=== PATIENT | male | born 1990 | race Caucasian/White ===

== ENCOUNTER 2020-02-10 15:23 | Emergency (ER) | payer SELFPAY ==
[2020-02-10 15:27] VITALS: BP 154/95; PULSE 106; RESP 17; TEMP 37.1; O2SAT 98; BMI 31.4
--- NOTE | 2020-02-10 15:33 | ED_ITS ---
Entered by Andrew Boyd LPN, acting as scribe for Angel Holt DO HPI - General Adult General: Chief complaint: General Medical Stated complaint: sore throat Time Seen by Provider: 02/10/20 15:35 Source: patient Mode of arrival: ambulatory Limitations: no limitations History of Present Illness: HPI narrative: 29 yo male presents with c/o sore throat for 4 days. He has had fever, up to 101.7, last ran a fever last night. He has had cough, productive of white/ yellowish phlegm. He denies rash, sob, cp. Associated symptoms: Deny chest pain, dyspnea, malaise, nausea, rash or vomiting Review of Systems Const: Reports: fever (last ran a fever last night); Denies: chills, body aches, change in appetite, fatigue or malaise ENMT: Reports: throat pain, painful swallowing and hoarseness; Denies: ear pain, nasal discharge or nasal congestion Card: Denies: chest pain, edema, shortness of breath on exertion or shortness of breath when lying down Resp: Reports: productive cough; Denies: shortness of breath or non-productive cough GI: Denies: abdominal pain, nausea, vomiting, vomiting blood, coffee grounds in vomit, diarrhea, constipation, bloating, blood in stool or black tarry stool : Denies: flank pain, painful urination, urinary frequency or urinary urgency Skin/Breast: Denies: rash or itching PFSH ED PFSH: Social History Smoking and tobacco status: never smoked Physical Exam Const: COMMON NORMALS: no apparent distress GENERAL APPEARANCE: cooperative and comfortable ORIENTATION/CONSCIOUSNESS: Yes awake, Yes oriented to person, Yes oriented to place and Yes oriented to time HENMT: COMMON NORMALS: normocephalic, head/scalp atraumatic, hearing grossly normal bilaterally, external ears normal, EAC's normal, TM's normal bilaterally, nasal mucous membranes and turbinates normal and moist oral mucous membranes HEAD & SCALP: normocephalic and atraumatic NOSE: nasal mucous membranes and turbinates normal EXTERNAL EAR: Yes external ears normal EXTERNAL AUDITORY CANAL: EAC's normal TYMPANIC MEMBRANE: TM's normal bilaterally THROAT: tonsils normal, posterior oropharynx abnormal cobblestoning and erythema; no exudates and other (mild posterior pharyngeal erythema, no exudate) Eye: COMMON NORMALS: PERRL, EOMs intact bilaterally, conjunctivae normal and no scleral icterus CONJUNCTIVA: Yes conjunctivae normal PUPIL: Yes PERRL Neck/C-Spine: COMMON NORMALS: full ROM, no lymphadenopathy, supple and no JVD Lymph: LYMPHATIC: no lymphadenopathy noted and no lymphedema noted Resp: COMMON NORMALS: normal respiratory effort, no retractions, no use of accessory muscles and clear to auscultation bilaterally AUSCULTATION: clear to auscultation bilaterally Cardio: COMMON NORMALS: no JVD, regular rate, regular rhythm and no murmurs RATE: regular rate RHYTHM: regular rhythm GI: COMMON NORMALS: soft to palpation and no hepatosplenomegaly AUSCULTATION: Yes normoactive bowel sounds PALPATION: Yes soft, No tender, No guarding and Yes no hepatosplenomegaly Extremity: COMMON NORMALS: normal to inspection, normal capillary refill, no clubbing, cyanosis or edema, no calf tenderness and no pedal edema Neuro: SENSORIUM/ORIENTATION: Yes oriented to person, Yes oriented to place and Yes oriented to time Skin: COMMON NORMALS: no rashes or lesions noted GENERAL SKIN EXAM: no rashes or lesions noted Course Vital Signs: Vital signs: Vital Signs Temperature 98.7 F 02/10/20 15:27 Pulse Rate 100 02/10/20 16:26 Respiratory Rate 17 02/10/20 16:26 Blood Pressure 125/80 02/10/20 16:26 Pulse Oximetry 99 02/10/20 16:26 MDM - General Adult Lab Data: Attestation: I reviewed the patient's lab results. Labs: Lab Results 02/10/20 Range/Units 15:55 Group A Strep Rapi d Negative (Negative) Discharge Plan Discharge Patient Disposition: Home, Self-Care Clinical Impression: Viral URI Condition: Stable Discharge Orders: Discharge Order (Routine); Ordered 02/10/20 Ordered By: Angel Holt Referrals: Lanette Saldana FNP-C [Primary Care Provider] - Discharge Diet: Usual diet Discharge Activity: Increase activity as tolerated Activity Restrictions/Additional Instructions: Follow-up with your primary care doctor if worsens Discharge Date/Time: 02/10/20 16:27 Coding Level of Care Code ED Mooner for Chg Fwd Exam Comprehensive The documentation recorded by the Oliver juarez Dani Elizabeth, LPN, accurately reflects the service I personally performed and the decisions made by me, Angel Holt, Feb 10, 2020 15:23
[2020-02-10 15:37] VITALS: BP 167/83; PULSE 78; RESP 16; O2SAT 98
[2020-02-10 16:17] LABS: Rapid Strep A Test Negative (Negative)
[2020-02-10 16:26] VITALS: BP 125/80; PULSE 100; RESP 17; O2SAT 99
== END 2020-02-10 16:27 | disposition home or self-care (01) ==
LOC: ER 16:28
PROVIDERS: Emergency Provider Family Medicine; Family Provider Nurse Practitioner; PCP Nurse Practitioner
DX: J06.9 Acute upper respiratory infection, unspecified (principal)
CPT/HCPCS: 12345; 87081; 87880; 99281; 99282

== ENCOUNTER 2020-08-11 20:16 | Emergency (ER) | payer OTHER, SELFPAY ==
[2020-08-11 20:20] VITALS: BP 151/88; PULSE 120; RESP 21; TEMP 38.9; O2SAT 95; BMI 32.1
--- NOTE | 2020-08-11 20:28 | XRR_ITS ---
PROCEDURE INFORMATION: Exam: XR Chest, 1 View Exam date and time: 08/11/2020 9:49 PM Age: 29 years old Clinical indication: Cough and fever; Patient HX: Fever and cough. Covid positive; Additional info: Fever/cough TECHNIQUE: Imaging protocol: XR of the chest Views: 1 view. COMPARISON: CR Chest 1 [place] [id number] 08/12/2018 11:46 PM FINDINGS: Lungs: Unremarkable. No consolidation. Pleural space: Unremarkable. No pleural effusion. No pneumothorax. Heart/Mediastinum: Unremarkable. No cardiomegaly. Bones/joints: No acute abnormality. XR/XR chest 1V portable [id number] IMPRESSION: No acute findings.
--- NOTE | 2020-08-11 20:39 | W.ED.FEVER ---
HPI - Fever General: Chief Complaint: Fever Stated Complaint: high fever/ cough/ Time Seen by Provider: 08/11/20 20:37 Source: patient Mode of arrival: ambulatory Limitations: no limitations History of Present Illness: HPI Narrative: Patient comes in with sinus drainage and congestion starting on . Patient reports fever starting this afternoon. Patient took 800 mg of ibuprofen prior to coming to ER. Patient appears mildly unwell. Patient appears in no acute distress. Patient does not recall exposure to anyone with COVID symptoms. Associated symptoms: Reports nasal congestion Review of Systems General: Reports: 10 or more systems reviewed and unremarkable except in HPI and below Const: Reports: fever(s) ENMT: Reports: throat pain and nasal congestion PFSH ED PFSH: Social History Smoking and tobacco status: never smoked Physical Exam Const: COMMON NORMALS: no acute distress and patient oriented x3 GENERAL APPEARANCE: cooperative HENMT: COMMON NORMALS: normocephalic, TM's normal bilaterally and Normal external nose present HEAD & SCALP: normal to inspection and normocephalic NOSE: Normal external nose present TYMPANIC MEMBRANE: TM's normal bilaterally MOUTH: Normal oral and palatal mucosa present THROAT: posterior oropharynx normal Eye: GENERAL EYE: appearance normal, both eyes and all related structures Neck/C-Spine: COMMON NORMALS: full ROM Lymph: LYMPHATIC: no lymphadenopathy noted Chest: COMMONS NORMALS: normal inspection of the chest Resp: COMMON NORMALS: normal respiratory effort EFFORT & INSPECTION: Yes able to speak in complete sentences Cardio: COMMON NORMALS: regular rate and regular rhythm RATE: regular rate RHYTHM: regular rhythm GI: COMMON NORMALS: non-tender : COMMON NORMALS: Yes no CVA tenderness BLADDER/KIDNEY EXAM: Yes no CVA tenderness Back/Pelvis: COMMON NORMALS: no CVA tenderness and thoracic and lumbar spine normal to inspection Extremity: COMMON NORMALS: normal to inspection Neuro: COMMON NORMALS: patient oriented x3 and moves all extremities Psych: COMMON NORMALS: mental status grossly normal and cooperative Skin: COMMON NORMALS: no rashes or lesions noted GENERAL SKIN EXAM: no rashes or lesions noted Course Vital Signs: Vital signs: Vital Signs Temperature 102.0 F H 08/11/20 20:20 Pulse Rate 120 H 08/11/20 20:20 Respiratory Rate 21 H 08/11/20 20:20 Blood Pressure 154/80 08/11/20 21:23 Pulse Oximetry 97 08/11/20 21:23 MDM - Fever MDM Narrative: Medical decision making narrative: Patient comes in today for complaints of fever with cough and congestion. Patient appears mildly unwell. Patient appears no acute distress. On exam patient's pharynx is pink and moist. Bilateral TMs are clear. Lungs are clear to auscultation. Differential diagnosis includes but not limited to upper respiratory infection, sinusitis, influenza, strep pharyngitis, COVID-19. Patient's COVID-19 antigen test was positive. Flu and strep are both negative. Chest x-ray was normal. Reviewed exam with patient with recommendations for treatment and follow-up. Patient was given 1 L of IV fluids and Tylenol and ketorolac for pain fever. Patient reported improvement. Recommended patient continue with supportive care. Patient reported understanding. Lab Data: Labs: Lab Results 08/11/20 08/11/20 08/11/20 Range/Units 21:00 21:00 21:00 WBC 6.2 (4.0-10.0) 10^3/ uL RBC 4.85 (4.1-5.3) 10^6/u L Hgb 15.1 (11.7-16.6) g/dL Hct 45.0 (42.0-52.0) % MCV 92.8 (80-94) fL MCH 31.1 (28.0-34.0) pg MCHC 33.6 (30.0-36.0) g/dL RDW 12.1 (12.1-15.1) % Plt Count 139 (130-400) 10^3/c mm MPV 12.6 H (7.4-10.4) fL Neut % (Auto) 69.7 % Lymph % (Auto) 17.7 % [place] % (Auto) 12.1 % Eos % (Auto) 0.0 % Baso % (Auto) 0.2 % Neut # (Auto) 4.34 (1.8-7.7) 10^3/u L Lymph # (Auto) 1.1 (0.8-4.8) 10^3/u L [place] # (Auto) 0.8 (0.2-0.9) 10^3/u L Eos # (Auto) 0.0 (0.0-0.8) 10^3/u L Baso # (Auto) 0.0 (0.0-0.1) 10^3/u L Nucleated RBC % (a uto) 0 % Nucleated RBCs # 0.0 /100WBC Sodium 136 (136-145) mmol/L Potassium 4.0 (3.5-5.1) mmol/L Chloride 99 (98-107) mmol/L Carbon Dioxide 27 (22-29) mmol/L Anion Gap 14.0 (5-19) BUN 15 (6-20) mg/dL Creatinine 1.3 H (0.7-1.2) mg/dL GFR Calculation 65.7 L (90-130) mL/min Glucose 93 (65-115) mg/dL Calculated Osmolal ity 278 L (285-295) mOsm/k g Calcium 8.6 (8.5-10.5) mg/dL Total Bilirubin 0.3 (0.15-1.2) mg/dL AST 19 (0-40) U/L ALT 20 (0-41) U/L Alkaline Phosphata se 24 L (40-130) IU/L Total Protein 7.5 (6.6-8.7) g/dL Albumin 4.4 (3.5-5.2) g/dL Globulin 3.1 (1.3-4.6) g/dL SARS-CoV-2 Ag (Rap id) Positive H (Negative) Discharge Plan Discharge Patient Disposition: Home Clinical Impression: COVID-19 URI (upper respiratory infection) Qualifiers: URI type: unspecified viral URI Qualified Code(s): J06.9 - Acute upper respiratory infection, unspecified Condition: Stable Discharge Orders: Discharge Order (Routine); Ordered 08/11/20 Ordered By: Stephen Richey Referrals: Lanette Saldana, OFFICE AUDITORPaulieC [Primary Care Provider] - Discharge Diet: Usual diet Discharge Activity: Increase activity as tolerated Patient Instructions: Upper Respiratory Infection (ED) Activity Restrictions/Additional Instructions: Drink plenty of fluids. Use acetaminophen and ibuprofen for pain. You may use [id number] cough and cold medications for symptoms. Avoid smoking. You need to be quarantine for the next 10 days or until fever free for at least 24 hours. You may follow-up earlier with the health department if your symptoms gaby and you feel better, in order to be cleared. Return to the emergency department for worsening signs and symptoms. Stand Alone Forms: Work/School Release Coding Level of Care Code ED Commercial Announcer for Chg Fwd Exam Comprehensive
[2020-08-11] MEDS: ketorolac 30 mg/mL INJ 15 MG IVP (20:48)
[2020-08-11] MEDS: acetaminophen 500 mg Tablet 1000 MG PO (20:48)
[2020-08-11] MEDS: sodium chloride 0.9% 1,000 ML 999 ML IV (20:49)
[2020-08-11 21:18] LABS: Basophils % 0.2 %; Hemoglobin 15.1 g/dL (11.7-16.6); Lymphocytes # 1.1 10^3/uL (0.8-4.8); Lymphocytes % 17.7 %; Mean Corpuscular HGB Conc 33.6 g/dL (30.0-36.0); Mean Corpuscular Hemoglobin 31.1 pg (28.0-34.0); Mean Corpuscular Volume 92.8 fL (80-94); Mean Platelet Volume 12.6 fL (7.4-10.4); Monocytes # 0.8 10^3/uL (0.2-0.9); Monocytes % 12.1 %; Neutrophils # 4.34 10^3/uL (1.8-7.7); Neutrophils % 69.7 %; Nucleated Red Blood Cells % 0 %; Platelet Count 139 10^3/cmm (130-400); Red Blood Count 4.85 10^6/uL (4.1-5.3); Red Cell Distribution Width 12.1 % (12.1-15.1); White Blood Count 6.2 10^3/uL (4.0-10.0)
[2020-08-11 21:23] VITALS: BP 154/80; O2SAT 97
[2020-08-11 21:36] LABS: SARS Covid-2 Antigen Positive (Negative)
[2020-08-11 21:44] LABS: Alanine Aminotransferase 20 U/L (0-41); Albumin Level 4.4 g/dL (3.5-5.2); Alkaline Phosphatase 24 IU/L (40-130); Aspartate Amino Transferase 19 U/L (0-40); Blood Urea Nitrogen 15 mg/dL (6-20); Calcium 8.6 mg/dL (8.5-10.5); Carbon Dioxide 27 mmol/L (22-29); Chloride 99 mmol/L (98-107); Globulin 3.1 g/dL (1.3-4.6); Glomerular Filtration Rate 65.7 mL/min (90-130); Glucose 93 mg/dL (65-115); Osmolality Calculated 278 mOsm/kg (285-295); Sodium 136 mmol/L (136-145); Total Bilirubin 0.3 mg/dL (0.15-1.2); Total Protein 7.5 g/dL (6.6-8.7)
[2020-08-11 22:41] LABS: Rapid Strep A Test Negative (Negative)
[2020-08-11 22:52] LABS: Influenza A by IFA Negative (Negative)
[2020-08-11 22:53] LABS: Influenza B by IFA Negative (Negative)
[2020-08-11 23:06] VITALS: BP 127/83; RESP 18; TEMP 37.6; O2SAT 97
== END 2020-08-11 23:08 | disposition home or self-care (01) ==
PROVIDERS: Emergency Medicine; Emergency Provider Nurse Practitioner Family; PCP Nurse Practitioner
DX: U07.1 COVID-19 (principal); J06.9 Acute upper respiratory infection, unspecified
CPT/HCPCS: 12345; 71045; 80053; 85025; 87040; 87081; 87426; 87804; 87880; 96361; 96374; 99283; J1885; J7030

== ENCOUNTER 2020-08-18 13:01 | Emergency (ER) | payer OTHER, SELFPAY ==
[2020-08-18] VITALS (24 sets, daily range): BP systolic 107–137; BP diastolic 52–84; PULSE 83–117; RESP 16–38; TEMP 38.1–39.8; O2SAT 86–99; BMI 32.1
--- NOTE | 2020-08-18 13:23 | ECG_ITS ---
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 Measurements Intervals [place] Rate: 116 P: 34 AL: 156 QRS: 25 QRSD: 94 T: 29 QT: 294 QTc: 409 Interpretive Statements SINUS TACHYCARDIA Compared to ECG 08/12/2018 23:09:49 Sinus rhythm no longer present Electronically Signed On 08-18-2020 17:20:37 CDT by Duke Ruiz M.D. [id number]
--- NOTE | 2020-08-18 13:23 | XRR_ITS ---
PROCEDURE INFORMATION: Exam: XR Chest, 1 View Exam date and time: 08/18/2020 1:25 PM Age: 29 years old Clinical indication: Dyspnea TECHNIQUE: Imaging protocol: XR of the chest Views: 1 view. COMPARISON: CR XR chest 1V portable [id number] 08/11/2020 9:34 PM FINDINGS: Lungs: Bilateral airspace opacities which can be seen pneumonia. Pleural space: No pleural effusion. No pneumothorax. Heart/Mediastinum: No cardiomegaly. Bones/joints: No acute fracture. XR/XR chest 1V portable [id number] IMPRESSION: Bilateral airspace opacities which can be seen pneumonia, including viral etiologies.
--- NOTE | 2020-08-18 13:41 | ED_ITS ---
HPI - SOB/Dyspnea General: Chief Complaint: Fever Stated Complaint: fever (positive covid) vomiting Time Seen by Provider: 08/18/20 13:13 Source: patient Mode of arrival: ambulatory Limitations: no limitations History of Present Illness: HPI Narrative: Emigdio is a nice 29-year-old male comes in complaining of shortness of breath, nausea and flulike symptoms. Patient states his symptoms started 8 days ago. He was seen and evaluated here and found to be negative for flu but he had an out side positive COVID test that resulted. Patient states he continues to feel short of breath. He has audible wheezing up in the room. He has nausea and muscle aches and pains. Of note the patient's pulse ox was found to be 86% on room air when he arrived. He states overall he is feeling worse. He states his been a steady decline since his illness started. He denies any chronic medical problems. He states though his symptoms were coming worse and as what he felt like he needed to come back to the hospital. He does not report trying anything at home to help with the symptoms. Associated symptoms: Reports fever(s) and nausea; Deny abdominal pain, chest congestion, chest pain, diaphoresis, dizziness, extremity pain, hemoptysis, lightheadedness, orthopnea, palpitations, syncope or vomiting Review of Systems Const: Reports: fever(s), chills, body aches, fatigue and malaise; Denies: diaphoresis Eyes: Denies: change in vision, blurry vision, photophobia, eye discomfort, eye discharge, eye redness or yellow eyes ENMT: Denies: throat pain, odynophagia, hoarseness, swelling of lips/tongue, ear or mastoid pain, ear discharge, change in hearing or nasal discharge Card: Denies: chest pain, palpitations, irregular heart rhythm, edema, lightheadedness, syncope, pre-syncope, dyspnea on exertion or orthopnea Resp: Reports: dyspnea and non-productive cough; Denies: productive cough, wheezing, hemoptysis or chest congestion GI: Reports: nausea; Denies: abdominal pain, vomiting, hematemesis, coffee ground emesis, heartburn, diarrhea, constipation, GI cramping, hematochezia or melena : Denies: flank pain, dysuria, urinary frequency, urinary urgency or hematuria Musc: Denies: neck pain, back pain, extremity pain, extremity swelling, joint pain, joint swelling, joint redness, joint warmth or joint stiffness Skin/Breast: Denies: rash, pruritus, erythema, skin pain or skin tenderness Neuro: Denies: headache(s), numbness in extremities, weakness in extremities, sensory changes, lack of coordination, difficulty walking, dizziness, vertigo, confusion, Slurred speech present or seizure-like activity Isaiah/Lymph: Denies: easy bruising, easy bleeding, petechiae, purpura or enlarged lymph nodes All/Imm: Denies: urticaria, throat swelling, tongue swelling, facial swelling or acute wheezing PFSH ED PFSH: Medical History COVID-19 Social History Smoking and tobacco status: never smoked Physical Exam Const: COMMON NORMALS: no acute distress, patient oriented x3, no limitations and alert GENERAL APPEARANCE: cooperative HENMT: COMMON NORMALS: normocephalic, atraumatic, external ears normal, EAC's normal and Normal external nose present HEAD & SCALP: normal to inspection, normocephalic and atraumatic FACE & SINUS: normal facial exam and face symmetric NOSE: Normal external nose present and Normal nares present EXTERNAL EAR: Yes external ears normal EXTERNAL AUDITORY CANAL: EAC's normal MOUTH: Normal oral and palatal mucosa present, lip normal and tongue normal Eye: COMMON NORMALS: Equal, round and reactive pupils present and conjunctivae normal GENERAL EYE: appearance normal, both eyes and all related structures ALIGNMENT: Yes alignment normal PERIORBITAL: periorbital findings normal EYELID: eyelids normal CONJUNCTIVA: Yes conjunctivae normal SCLERA: sclerae normal PUPIL: Yes Equal, round and reactive pupils present Neck/C-Spine: COMMON NORMALS: full ROM, no lymphadenopathy, supple, no meningeal signs and no JVD GENERAL: Yes normal visual inspection and Yes trachea midline Chest: COMMONS NORMALS: normal inspection of the chest and normal palpation of entire chest wall Resp: COMMON NORMALS: normal respiratory effort, No retractions, No use of accessory muscles and clear to auscultation bilaterally EFFORT & INSPECTION: Yes able to speak in complete sentences and Yes symmetric chest movement AUSCULTATION: clear to auscultation bilaterally, no crackles, no rales, rhonchi and wheezes Cardio: COMMON NORMALS: no JVD, regular rhythm, S1 normal heart sound present and S2 normal heart sound present RATE: tachycardic RHYTHM: regular rhythm HEART SOUNDS: S1 normal heart sound present, S2 normal heart sound present, no click, no gallops, no murmurs and no rubs GI: COMMON NORMALS: Soft to palpation and No hepatosplenomegaly present PALPATION: Yes Soft to palpation, No Tenderness to palpation present (GI), No Guarding due to palpation present (GI), No Rigid due to palpation, Yes No hepatosplenomegaly present, No Hernia present, No Palpable mass present and No Pulsatile mass present : COMMON NORMALS: Yes no CVA tenderness BLADDER/KIDNEY EXAM: Yes no CVA tenderness Back/Pelvis: COMMON NORMALS: no CVA tenderness, thoracic and lumbar spine normal to inspection, no thoracic nor lumbar tenderness and thoraco-lumbar ROM normal Extremity: COMMON NORMALS: normal to inspection, full ROM, capillary refill normal, no joint enlargement, no clubbing, cyanosis or edema and no calf tenderness Neuro: COMMON NORMALS: patient oriented x3, CN's II-XII intact bilaterally, moves all extremities, no focal motor deficits and no sensory deficits noted SENSORIUM/ORIENTATION: Yes alert MENINGEAL SIGNS: Yes no meningeal signs SPEECH: speech normal Psych: COMMON NORMALS: mental status grossly normal, Normal thought process present, cooperative, normal affect, speech normal and activity/motor behavior normal SPEECH: Yes normal speech THOUGHT PROCESS: Normal thought process present Skin: COMMON NORMALS: no rashes or lesions noted, turgor normal, no jaundice, no petechiae and no mottling GENERAL SKIN EXAM: no rashes or lesions noted and turgor normal Course Vital Signs: Vital signs: Vital Signs Temperature 100.5 F H 08/18/20 16:25 Pulse Rate 90 08/18/20 19:00 Respiratory Rate 28 H 08/18/20 18:15 Blood Pressure 128/59 08/18/20 19:15 Pulse Oximetry 96 08/18/20 18:45 MDM - SOB/Dyspnea MDM Narrative: Medical decision making narrative: 1804 -the case was reviewed with Dr. Palomares on-call for ICU at [facility]. She understands that we do not have the ability to care for Emgidio here as we have no more COVID ICU beds available. Patient is gotten progressively more hypoxic as he has been here but stabilized with a 15 L high flow nasal cannula oxygen and is now been titrated down to 10 L. She agrees accept the patient in transfer. We will send the patient by air ambulance service as he has less time to decline in the process of transfer. 1856 -[facility] here to take the patient. Currently he is still stable on 12 L nasal cannula oxygen. His tachypnea is improved and his work of breathing is improved. He is no longer hypoxic staying approximately 96% on room air with this. Lab Data: Attestation: I reviewed the patient's lab results. Labs: Lab Results 08/18/20 08/18/20 08/18/20 Range/Units 13:20 13:20 13:20 WBC 8.9 (4.0-10.0) 10^3/ uL RBC 4.70 (4.1-5.3) 10^6/u L Hgb 14.4 (11.7-16.6) g/dL Hct 42.8 (42.0-52.0) % MCV 91.1 (80-94) fL MCH 30.6 (28.0-34.0) pg MCHC 33.6 (30.0-36.0) g/dL RDW 12.3 (12.1-15.1) % Plt Count 266 (130-400) 10^3/c mm MPV 11.4 H (7.4-10.4) fL Neut % (Auto) 85.3 % Lymph % (Auto) 9.4 % [place] % (Auto) 4.0 % Eos % (Auto) 0.0 % Baso % (Auto) 0.0 % Neut # (Auto) 7.59 (1.8-7.7) 10^3/u L Lymph # (Auto) 0.8 (0.8-4.8) 10^3/u L [place] # (Auto) 0.4 (0.2-0.9) 10^3/u L Eos # (Auto) 0.0 (0.0-0.8) 10^3/u L Baso # (Auto) 0.0 (0.0-0.1) 10^3/u L Nucleated RBC % (a uto) 0 % Nucleated RBCs # 0.0 /100WBC PT 14.50 (12.1-14.9) SECO NDS INR 1.10 (0.8-1.2) Fibrinogen 1191 H (174-498) mg/dL D-Dimer 1.15 H (0-0.59) ug/mIFE U Specimen Type Sample Site ABG pH (7.35-7.45) ABG pCO2 (35-45) mmHg ABG pO2 (80.0-100.0) mmH g ABG HCO3 (22-26) mmol/L ABG Base Excess (-2.0-2.0) mmol/ L John Test Hematocrit (42-52) % O2 Delivery Device O2 Liters/Min % FiO2 % Continuous [employer] Supervisor ID Sodium 134 L (136-145) mmol/L Potassium 3.3 L (3.5-5.1) mmol/L Chloride 94 L (98-107) mmol/L Carbon Dioxide 27 (22-29) mmol/L Anion Gap 16.3 (5-19) BUN 16 (6-20) mg/dL Creatinine 1.2 (0.7-1.2) mg/dL GFR Calculation 72.1 L (90-130) mL/min Glucose 119 H (65-115) mg/dL Calculated Osmolal ity 280 L (285-295) mOsm/k g Lactic Acid (0.5-2.2) mmol/L Calcium 8.4 L (8.5-10.5) mg/dL Magnesium 2.4 H (1.7-2.3) mg/dL Ferritin 1503 H (30-400) ng/mL Total Bilirubin 0.5 (0.15-1.2) mg/dL AST 118 H (0-40) U/L ALT 64 H (0-41) U/L Alkaline Phosphata se 16 L (40-130) IU/L Lactate Dehydrogen ase 763 H (135-225) U/L C-Reactive Protein 256.4 H (0.0-4.9) mg/L Total Protein 7.9 (6.6-8.7) g/dL Albumin 4.0 (3.5-5.2) g/dL Globulin 3.9 (1.3-4.6) g/dL Procalcitonin 0.79 H (0-0.5) ng/mL Urine Color (Yellow) Urine Appearance (CLEAR) Urine pH (5-7) Ur Specific Gravit y (1.005-1.030) Urine Protein (Negative) Urine Glucose (UA) (Normal) Urine Ketones (Negative) Urine Blood (Negative) Urine Nitrate (Negative) Urine Bilirubin (Negative) Urine Urobilinogen (Negative) mg/dL Ur Leukocyte Yojana ase (Negative) Urine RBC (0-2) /hpf Urine WBC (0-5) /hpf Ur Squamous Epith Cells (0-5) /hpf Amorphous Sediment Urine Bacteria (NONE) /hpf Influenza Type A A g (Negative) Influenza Type B A g (Negative) 08/18/20 08/18/20 08/18/20 Range/Units 13:20 13:45 14:02 WBC (4.0-10.0) 10^3/ uL RBC (4.1-5.3) 10^6/u L Hgb (11.7-16.6) g/dL Hct (42.0-52.0) % MCV (80-94) fL MCH (28.0-34.0) pg MCHC (30.0-36.0) g/dL RDW (12.1-15.1) % Plt Count (130-400) 10^3/c mm MPV (7.4-10.4) fL Neut % (Auto) % Lymph % (Auto) % [place] % (Auto) % Eos % (Auto) % Baso % (Auto) % Neut # (Auto) (1.8-7.7) 10^3/u L Lymph # (Auto) (0.8-4.8) 10^3/u L [place] # (Auto) (0.2-0.9) 10^3/u L Eos # (Auto) (0.0-0.8) 10^3/u L Baso # (Auto) (0.0-0.1) 10^3/u L Nucleated RBC % (a uto) % Nucleated RBCs # /100WBC PT (12.1-14.9) SECO NDS INR (0.8-1.2) Fibrinogen (174-498) mg/dL D-Dimer (0-0.59) ug/mIFE U Specimen Type Arterial Sample Site Radial, left ABG pH 7.47 H (7.35-7.45) ABG pCO2 32.9 L (35-45) mmHg ABG pO2 50.4 L (80.0-100.0) mmH g ABG HCO3 23.9 (22-26) mmol/L ABG Base Excess 0.9 (-2.0-2.0) mmol/ L John Test Pos Hematocrit 45.0 (42-52) % O2 Delivery Device Nc O2 Liters/Min 2.0 % FiO2 28.0 % Continuous [employer] Supervisor ID Amh Sodium (136-145) mmol/L Potassium (3.5-5.1) mmol/L Chloride (98-107) mmol/L Carbon Dioxide (22-29) mmol/L Anion Gap (5-19) BUN (6-20) mg/dL Creatinine (0.7-1.2) mg/dL GFR Calculation (90-130) mL/min Glucose (65-115) mg/dL Calculated Osmolal ity (285-295) mOsm/k g Lactic Acid 1.1 (0.5-2.2) mmol/L Calcium (8.5-10.5) mg/dL Magnesium (1.7-2.3) mg/dL Ferritin (30-400) ng/mL Total Bilirubin (0.15-1.2) mg/dL AST (0-40) U/L ALT (0-41) U/L Alkaline Phosphata se (40-130) IU/L Lactate Dehydrogen ase (135-225) U/L C-Reactive Protein (0.0-4.9) mg/L Total Protein (6.6-8.7) g/dL Albumin (3.5-5.2) g/dL Globulin (1.3-4.6) g/dL Procalcitonin (0-0.5) ng/mL Urine Color Yellow (Yellow) Urine Appearance Clear (CLEAR) Urine pH 6 (5-7) Ur Specific Gravit y 1.015 (1.005-1.030) Urine Protein 2+ H (Negative) Urine Glucose (UA) Norm (Normal) Urine Ketones Negative (Negative) Urine Blood 3+ H (Negative) Urine Nitrate Negative (Negative) Urine Bilirubin Neg (Negative) Urine Urobilinogen Norm (Negative) mg/dL Ur Leukocyte Yojana ase Negative (Negative) Urine RBC 0-4 H (0-2) /hpf Urine WBC 0-4 H (0-5) /hpf Ur Squamous Epith Cells Rare (0-5) /hpf Amorphous Sediment Not Reportable Urine Bacteria 1+ H (NONE) /hpf Influenza Type A A g (Negative) Influenza Type B A g (Negative) 08/18/20 Range/Units 14:02 WBC (4.0-10.0) 10^3/ uL RBC (4.1-5.3) 10^6/u L Hgb (11.7-16.6) g/dL Hct (42.0-52.0) % MCV (80-94) fL MCH (28.0-34.0) pg MCHC (30.0-36.0) g/dL RDW (12.1-15.1) % Plt Count (130-400) 10^3/c mm MPV (7.4-10.4) fL Neut % (Auto) % Lymph % (Auto) % [place] % (Auto) % Eos % (Auto) % Baso % (Auto) % Neut # (Auto) (1.8-7.7) 10^3/u L Lymph # (Auto) (0.8-4.8) 10^3/u L [place] # (Auto) (0.2-0.9) 10^3/u L Eos # (Auto) (0.0-0.8) 10^3/u L Baso # (Auto) (0.0-0.1) 10^3/u L Nucleated RBC % (a uto) % Nucleated RBCs # /100WBC PT (12.1-14.9) SECO NDS INR (0.8-1.2) Fibrinogen (174-498) mg/dL D-Dimer (0-0.59) ug/mIFE U Specimen Type Sample Site ABG pH (7.35-7.45) ABG pCO2 (35-45) mmHg ABG pO2 (80.0-100.0) mmH g ABG HCO3 (22-26) mmol/L ABG Base Excess (-2.0-2.0) mmol/ L John Test Hematocrit (42-52) % O2 Delivery Device O2 Liters/Min % FiO2 % Continuous [employer] Supervisor ID Sodium (136-145) mmol/L Potassium (3.5-5.1) mmol/L Chloride (98-107) mmol/L Carbon Dioxide (22-29) mmol/L Anion Gap (5-19) BUN (6-20) mg/dL Creatinine (0.7-1.2) mg/dL GFR Calculation (90-130) mL/min Glucose (65-115) mg/dL Calculated Osmolal ity (285-295) mOsm/k g Lactic Acid (0.5-2.2) mmol/L Calcium (8.5-10.5) mg/dL Magnesium (1.7-2.3) mg/dL Ferritin (30-400) ng/mL Total Bilirubin (0.15-1.2) mg/dL AST (0-40) U/L ALT (0-41) U/L Alkaline Phosphata se (40-130) IU/L Lactate Dehydrogen ase (135-225) U/L C-Reactive Protein (0.0-4.9) mg/L Total Protein (6.6-8.7) g/dL Albumin (3.5-5.2) g/dL Globulin (1.3-4.6) g/dL Procalcitonin (0-0.5) ng/mL Urine Color (Yellow) Urine Appearance (CLEAR) Urine pH (5-7) Ur Specific Gravit y (1.005-1.030) Urine Protein (Negative) Urine Glucose (UA) (Normal) Urine Ketones (Negative) Urine Blood (Negative) Urine Nitrate (Negative) Urine Bilirubin (Negative) Urine Urobilinogen (Negative) mg/dL Ur Leukocyte Yojana ase (Negative) Urine RBC (0-2) /hpf Urine WBC (0-5) /hpf Ur Squamous Epith Cells (0-5) /hpf Amorphous Sediment Urine Bacteria (NONE) /hpf Influenza Type A A g Negative (Negative) Influenza Type B A g Negative (Negative) Imaging Data^: CXR: Attestation: I personally reviewed and interpreted this imaging study as follows: My impression: Bilateral infiltrates in the upper and lower lobes. EKG Data^: EKG 1: Attestation: I personally reviewed and interpreted this EKG as follows: EKG Interpretation Date: 08/18/20 EKG interpretation time: 14:10 Interpretation: Sinus tach with a ventricular rate of 116, no blocks, normal intervals, no acute ST or T wave changes. Discharge Plan Discharge Patient Disposition: Xfer Short-Term Hosp Clinical Impression: Viral pneumonitis, COVID-19 virus infection Condition: Stable Referrals: Lanette Saldana, FARM ASSISTANT-C [Primary Care Provider] - Discharge Date/Time: 08/18/20 19:30 Coding Level of Care Code ED Supervisor [employer] for Chg Fwd Exam Comprehensive
[2020-08-18] MEDS: albuterol 8 gm MDI 6 PUFF INHALATION (13:50)
[2020-08-18 13:58] LABS: ABG PCO2 32.9 mmHg (35-45); ABG PH Result 7.47 (7.35-7.45); Base Excess ABG 0.9 mmol/L (-2.0-2.0); Blood Gas Allen Test Pos; Blood Gas Operator Identificat AMH; Blood Gas Sample Site Radial, left; Blood Gas Sample Type Arterial; HCO3 ABG 23.9 mmol/L (22-26); Oxygen Device NC; PO2 ABG 50.4 mmHg (80.0-100.0)
[2020-08-18] MEDS: dexamethasone 10 mg/mL INJ IVP (14:13)
[2020-08-18] MEDS: sodium chloride 0.9% 1,000 ML 100 ML IV (14:13)
[2020-08-18 14:18] LABS: Hematocrit 42.8 % (42.0-52.0); Hemoglobin 14.4 g/dL (11.7-16.6); Lymphocytes # 0.8 10^3/uL (0.8-4.8); Lymphocytes % 9.4 %; Mean Corpuscular HGB Conc 33.6 g/dL (30.0-36.0); Mean Corpuscular Hemoglobin 30.6 pg (28.0-34.0); Mean Corpuscular Volume 91.1 fL (80-94); Mean Platelet Volume 11.4 fL (7.4-10.4); Monocytes # 0.4 10^3/uL (0.2-0.9); Neutrophils # 7.59 10^3/uL (1.8-7.7); Neutrophils % 85.3 %; Nucleated Red Blood Cells % 0 %; Platelet Count 266 10^3/cmm (130-400); Red Cell Distribution Width 12.3 % (12.1-15.1); White Blood Count 8.9 10^3/uL (4.0-10.0)
[2020-08-18] MEDS: acetaminophen 500 mg Tablet 1000 MG PO (14:28)
[2020-08-18 14:31] LABS: Add Urine Microscopic? YES; Bilirubin Urine Neg (Negative); Blood Urine 3+ (Negative); Glucose Urine UA Norm (Normal); Ketones Urine Negative (Negative); Leukocyte Esterase Urine Negative (Negative); Nitrate Urine Negative (Negative); Protein Urine 2+ (Negative); Specific Gravity, Urine 1.015 (1.005-1.030); Urine Appearance Clear (CLEAR); Urine Color Yellow (Yellow); Urobilinogen Urine Norm (Negative); pH Urine 6 (5-7)
[2020-08-18 14:40] LABS: Lactic Sepsis W/Reflex 1.1 mmol/L (0.5-2.2)
[2020-08-18 14:41] LABS: D Dimer 1.15 ug/mIFEU (0-0.59)
[2020-08-18 14:42] LABS: Influenza A by IFA Negative (Negative); Influenza B by IFA Negative (Negative)
[2020-08-18 14:44] LABS: Add Urine Culture? No; Bacteria Urine 1+ /hpf; RBC Urine 0-4 /hpf (0-2); Squamous Epithelial Cell Urine RARE /hpf (0-5); WBC Urine 0-4 /hpf (0-5)
[2020-08-18 14:45] LABS: Fibrinogen 1191 mg/dL (174-498)
[2020-08-18 14:50] LABS: Procalcitonin 0.79 ng/mL (0-0.5)
[2020-08-18 15:01] LABS: Alanine Aminotransferase 64 U/L (0-41); Alkaline Phosphatase 16 IU/L (40-130); Anion Gap 16.3 (5-19); Aspartate Amino Transferase 118 U/L (0-40); Blood Urea Nitrogen 16 mg/dL (6-20); C Reactive Protein 256.4 mg/L (0.0-4.9); Calcium 8.4 mg/dL (8.5-10.5); Carbon Dioxide 27 mmol/L (22-29); Chloride 94 mmol/L (98-107); Globulin 3.9 g/dL (1.3-4.6); Glomerular Filtration Rate 72.1 mL/min (90-130); Glucose 119 mg/dL (65-115); Lactate Dehydrogenase 763 U/L (135-225); Magnesium 2.4 mg/dL (1.7-2.3); Osmolality Calculated 280 mOsm/kg (285-295); Potassium 3.3 mmol/L (3.5-5.1); Sodium 134 mmol/L (136-145); Total Bilirubin 0.5 mg/dL (0.15-1.2); Total Protein 7.9 g/dL (6.6-8.7)
[2020-08-18 15:13] LABS: Ferritin 1503 ng/mL (30-400)
[2020-08-18] MEDS: levofloxacin-dextrose 5 % 750 MG/150 ML PREMIX 150 MG IV (15:45)
[2020-08-18] MEDS: ketorolac 30 mg/mL INJ 15 MG IVP (16:00)
[2020-08-18] MEDS: potassium chloride premix 40 MEQ/100 ML PREMIX 25 MEQ IV (16:03)
--- NOTE | 2020-08-18 19:05 | PC.NURSE ---
REPORT GIVEN TO SURVIVAL FLIGHT ASSUMED CARE.
== END 2020-08-18 19:30 | disposition short-term general hospital (02) ==
PROVIDERS: Emergency Provider Emergency Medicine; PCP Nurse Practitioner
DX: U07.1 COVID-19 (principal); J12.89 Other viral pneumonia
CPT/HCPCS: 12345; 36415; 36600; 71045; 80053; 81001; 82728; 82803; 83605; 83615; 83735; 84145; 85025; 85378; 85384; 85610; 86140; 87040; 87804; 93005; 94640; 96365; 96366; 96375; 99284; 99285; J1100; J1885; J1956; J3480; J3535; J7030

== ENCOUNTER → 2021-04-03 10:50 | Outpatient (BNVA) | payer SELFPAY | PROVIDERS: PCP Nurse Practitioner; Visit Provider Nurse Practitioner Family | DX: R73.9 Hyperglycemia, unspecified (principal) | CPT/HCPCS: 80053; 80061; 83036; 85025 ==

== ENCOUNTER 2021-09-16 09:32 | Emergency (ER) | payer SELFPAY ==
--- NOTE | 2021-09-16 09:37 | XRR_ITS ---
PROCEDURE INFORMATION: Exam: XR Chest Exam date and time: 09/16/2021 9:37 AM Age: 30 years old Clinical indication: Cough and dyspnea; Additional info: Dyspnea/cough TECHNIQUE: Imaging protocol: XR of the chest. Views: 1 view. Total images: 1 COMPARISON: CR XR chest 1V portable [id number] 08/18/2020 1:35 PM FINDINGS: Lungs: Unremarkable. No consolidation. Pleural spaces: Unremarkable. No pleural effusion. No pneumothorax. Heart/Mediastinum: Unremarkable. No cardiomegaly. Bones/joints: Unremarkable. XR/XR chest 1V portable [id number] IMPRESSION: No acute findings. Radiation Dose CTDIVOL = (mGy): DLP = (mGy-cm)
--- NOTE | 2021-09-16 09:37 | ECG_ITS ---
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 Measurements Intervals [place] Rate: 82 P: 72 FL: 163 QRS: 34 QRSD: 102 T: 40 QT: 332 QTc: 388 Interpretive Statements SINUS RHYTHM ST ELEVATION, PROBABLY EARLY REPOLARIZATION [ST ELEVATION WITH NORMALLY INFLECTED T-WAVE] Compared to ECG 08/18/2020 14:10:13 ST (T wave) deviation now present Early repolarization now present Sinus tachycardia no longer present Electronically Signed On 09-16-2021 19:19:20 CDT by Ligia Pratt M.D. [email or web address]
[2021-09-16 09:40] VITALS: BP 132/97; PULSE 96; RESP 16; TEMP 36.8; O2SAT 98; BMI 29.9
--- NOTE | 2021-09-16 09:51 | W.ED.CHESTPA ---
HPI - Chest Pain General: Chief Complaint: Chest Pain Stated Complaint: CP CONSTANT X 3 DAYS Time Seen by Provider: 09/16/21 09:35 History of Present Illness: HPI narrative: 30-year-old male presents emergency room complaining of chest pain. This current episode is been going on for about the last 3 days he says is nearly constant he denies any diaphoresis or shortness of breath radiation of the chest pain. He had Covid last year. He has never had any DVTs or PEs. He is not noticed anything that exacerbates or relieves this. He denies any heartburn symptoms. He did state he was told he had an irregular heartbeat at 1 point but has not had any formal cardiac evaluation. He is not on any medications no history of diabetes or hypertension there is no family history of early coronary artery disease. MD complaint: chest discomfort Onset (ago): day(s) Timing of current episode: episodic Prior episodes: Yes Onset: during rest Pain location: left chest Pain radiation: none Severity: mild Quality: heaviness Relieving factors: nothing Exacerbating factors: nothing Context: recent illness Associated symptoms: Deny abdominal pain, diaphoresis, dyspnea, fever(s), leg edema, nausea, palpitations, sense of impending doom, syncope or vomiting Treatment prior to arrival: none Review of Systems Const: Denies: fever(s) or diaphoresis Card: Denies: palpitations or syncope Resp: Denies: dyspnea GI: Denies: abdominal pain, nausea or vomiting [facility] ED PFSH: Medical History COVID-19 Social History Smoking and tobacco status: current every day smoker smokeless tobacco Smokeless tobacco user: chewing tobacco Alcohol intake: never Desire information about alcohol rehabilitation?: No Counseling given: No Desire information about substance/drug rehabilitation?: No Counseling given: No Adopted: No Caregiver/support person: No Lives independently: Yes Household members: spouse Housing: House Marital status: Number of children: 4 Highest education level completed: 11th Grade service: No Current occupational status: employed History of recent travel: No Physical Exam Const: COMMON NORMALS: no acute distress GENERAL APPEARANCE: cooperative and comfortable ORIENTATION/CONSCIOUSNESS: Yes awake, Yes oriented to person, Yes oriented to place and Yes oriented to time HENMT: COMMON NORMALS: normocephalic, atraumatic and hearing grossly normal bilaterally HEAD & SCALP: normocephalic and atraumatic Neck/C-Spine: COMMON NORMALS: no JVD Resp: COMMON NORMALS: normal respiratory effort, No retractions, No use of accessory muscles and clear to auscultation bilaterally AUSCULTATION: clear to auscultation bilaterally Cardio: COMMON NORMALS: no JVD, regular rate, regular rhythm and No murmurs present (Cardio) RATE: regular rate RHYTHM: regular rhythm GI: COMMON NORMALS: Soft to palpation and No hepatosplenomegaly present AUSCULTATION: Yes normoactive bowel sounds PALPATION: Yes Soft to palpation, No Tenderness to palpation present (GI), No Guarding due to palpation present (GI) and Yes No hepatosplenomegaly present Extremity: COMMON NORMALS: normal to inspection, capillary refill normal, no clubbing, cyanosis or edema, no calf tenderness and no pedal edema Neuro: SENSORIUM/ORIENTATION: Yes oriented to person, Yes oriented to place and Yes oriented to time Skin: COMMON NORMALS: no rashes or lesions noted GENERAL SKIN EXAM: no rashes or lesions noted Course Vital Signs: Vital signs: Vital Signs Temperature 97.6 F 09/16/21 11:50 Pulse Rate 78 09/16/21 11:50 Respiratory Rate 15 09/16/21 11:50 Blood Pressure 132/97 09/16/21 11:50 Pulse Oximetry 97 09/16/21 11:50 MDM - Chest Pain MDM Narrative: Medical decision making narrative: Labs imaging EKG reviewed on the chart. No acute findings we will go and discharge patient home set him up for a graded exercise stress test also to start him on pantoprazole. Lab Data: Labs: Lab Results 09/16/21 09/16/21 09/16/21 09:55 09:55 09:55 WBC 9.0 10^3/uL 10^3/ uL (4.0-10.0) RBC 5.37 10^6/uL H 10 ^6/uL (4.1-5.3) Hgb 16.3 g/dL g/dL (11.7-16.6) Hct 48.8 % % (42.0-52.0) MCV 90.9 fl fl (80-94) MCH 30.4 pg pg (28.0-34.0) MCHC 33.4 g/dL g/dL (30.0-36.0) RDW 12.4 % % (12.1-15.1) Plt Count 198 10^3/cmm 10^3 /cmm (130-400) MPV 12.3 fL H fL (7.4-10.4) Neut % (Auto) 59.1 % % Lymph % (Auto) 29.0 % % [place] % (Auto) 10.4 % % Eos % (Auto) 0.9 % % Baso % (Auto) 0.2 % % Neut # (Auto) 5.30 10^3/uL 10^3 /uL (1.8-7.7) Lymph # (Auto) 2.6 10^3/uL 10^3/ uL (0.8-4.8) [place] # (Auto) 0.9 10^3/uL 10^3/ uL (0.2-0.9) Eos # (Auto) 0.1 10^3/uL 10^3/ uL (0.0-0.8) Baso # (Auto) 0.0 10^3/uL 10^3/ uL (0.0-0.1) Nucleated RBC % (a uto) 0 % % Nucleated RBCs # 0.0 /100WBC /100W BC D-Dimer <= 0.27 ug/mIFEU ug/mIFEU (0-0.59) Sodium 140 mmol/L mmol/L (136-145) Potassium 4.5 mmol/L mmol/L (3.5-5.1) Chloride 103 mmol/L mmol/L (98-107) Carbon Dioxide 26 mmol/L mmol/L (22-29) Anion Gap 15.5 (5-19) BUN 10 mg/dL mg/dL (6-20) Creatinine 1.2 mg/dL mg/dL (0.7-1.2) GFR Calculation 71.6 mL/min L mL/ min (90-130) Glucose 86 mg/dL mg/dL (65-115) Calculated Osmolal ity 288 mOsm/kg mOsm/ kg (285-295) Calcium 9.8 mg/dL mg/dL (8.5-10.5) Total Bilirubin 0.7 mg/dL mg/dL (0.15-1.2) AST 15 U/L U/L (0-40) ALT 19 U/L U/L (0-41) Alkaline Phosphata se 29 IU/L L IU/L (40-130) Troponin T Baselin e Total Protein 7.5 g/dL g/dL (6.6-8.7) Albumin 4.7 g/dL g/dL (3.5-5.2) Globulin 2.8 g/dL g/dL (1.3-4.6) 09/16/21 09:55 WBC RBC Hgb Hct MCV MCH MCHC RDW Plt Count MPV Neut % (Auto) Lymph % (Auto) [place] % (Auto) Eos % (Auto) Baso % (Auto) Neut # (Auto) Lymph # (Auto) [place] # (Auto) Eos # (Auto) Baso # (Auto) Nucleated RBC % (a uto) Nucleated RBCs # D-Dimer Sodium Potassium Chloride Carbon Dioxide Anion Gap BUN Creatinine GFR Calculation Glucose Calculated Osmolal ity Calcium Total Bilirubin AST ALT Alkaline Phosphata se Troponin T Baselin e 7 ng/L ng/L (0-15) Total Protein Albumin Globulin Discharge Plan Discharge Patient Disposition: Home Clinical Impression: Atypical chest pain, GERD (gastroesophageal reflux disease) Condition: Stable Prescriptions: New pantoprazole 40 mg tablet,delayed release (DR/EC) 40 mg PO DAILY 28 Days RF: 0 Discharge Orders: Discharge ED (Routine); Ordered 09/16/21 Ordered By: Angel Holt Referrals: Lanette Saldana, POLITICAL ANALYST-C [Primary Care Provider] - Discharge Diet: Usual diet Discharge Activity: Limit activity as instructed Patient Instructions: Opioid Safety Activity Restrictions/Additional Instructions: Case management will call to make arrangements for you to have an exercise stress test. If symptoms persist follow-up with your primary care doctor or return to the emergency room. Coding Level of Care Code ED Senior Qc Technician for Luann Fwd Exam Comprehensive Sepsis Evaluation Sepsis screening result: No Definite Risk Current stage of sepsis: ruled out Reason for ruling out sepsis: accidentally added content Possible source: other (accidentally added section) Focused Exam Vital Signs Temp Pulse Pulse Resp BP BP Pulse Ox 09/16/21 11:50 97.6 F 78 15 132/97 97 09/16/21 09:55 97.6 F 78 15 132/97 97 09/16/21 09:40 98.2 F 96 16 132/97 98
[2021-09-16 09:55] VITALS: BP 132/97; PULSE 78; RESP 15; TEMP 36.4; O2SAT 97
[2021-09-16 10:02] LABS: Basophils % 0.2 %; Eosinophils # 0.1 10^3/uL (0.0-0.8); Eosinophils % 0.9 %; Hematocrit 48.8 % (42.0-52.0); Hemoglobin 16.3 g/dL (11.7-16.6); Lymphocytes # 2.6 10^3/uL (0.8-4.8); Mean Corpuscular HGB Conc 33.4 g/dL (30.0-36.0); Mean Corpuscular Hemoglobin 30.4 pg (28.0-34.0); Mean Corpuscular Volume 90.9 fl (80-94); Mean Platelet Volume 12.3 fL (7.4-10.4); Monocytes # 0.9 10^3/uL (0.2-0.9); Monocytes % 10.4 %; Neutrophils % 59.1 %; Nucleated Red Blood Cells % 0 %; Platelet Count 198 10^3/cmm (130-400); Red Blood Count 5.37 10^6/uL (4.1-5.3); Red Cell Distribution Width 12.4 % (12.1-15.1)
[2021-09-16 10:26] LABS: D Dimer <= 0.27 ug/mIFEU (0-0.59)
[2021-09-16 10:28] LABS: Alanine Aminotransferase 19 U/L (0-41); Albumin Level 4.7 g/dL (3.5-5.2); Alkaline Phosphatase 29 IU/L (40-130); Anion Gap 15.5 (5-19); Aspartate Amino Transferase 15 U/L (0-40); Blood Urea Nitrogen 10 mg/dL (6-20); Calcium 9.8 mg/dL (8.5-10.5); Carbon Dioxide 26 mmol/L (22-29); Chloride 103 mmol/L (98-107); Globulin 2.8 g/dL (1.3-4.6); Glomerular Filtration Rate 71.6 mL/min (90-130); Glucose 86 mg/dL (65-115); Osmolality Calculated 288 mOsm/kg (285-295); Potassium 4.5 mmol/L (3.5-5.1); Sodium 140 mmol/L (136-145); Total Bilirubin 0.7 mg/dL (0.15-1.2); Total Protein 7.5 g/dL (6.6-8.7)
[2021-09-16 10:31] LABS: Troponin(5th) Baseline 7 ng/L (0-15)
--- NOTE | 2021-09-16 11:37 | ECG_ITS ---
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 Measurements Intervals [place] Rate: 78 P: 57 ID: 172 QRS: 27 QRSD: 90 T: 36 QT: 328 QTc: 375 Interpretive Statements SINUS RHYTHM ST ELEVATION, PROBABLY EARLY REPOLARIZATION [ST ELEVATION WITH NORMALLY INFLECTED T-WAVE] Compared to ECG 09/16/2021 09:41:41 No significant changes Electronically Signed On 09-16-2021 19:25:07 CDT by Ligia Pratt M.D. [id number]
[2021-09-16 11:50] VITALS: BP 132/97; PULSE 78; RESP 15; TEMP 36.4; O2SAT 97
--- NOTE | 2021-09-17 12:41 | DCPLANNER ---
consumer insight manager had message to schedule an outpatient stress test for patient. consumer insight manager faxed signed order to centralized scheduling, who will call patient with appointment information.
--- NOTE | 2021-10-11 14:45 | DCPLANNER ---
Patient had an outpatient stress test and it was cancelled.
== END 2021-09-16 11:50 | disposition home or self-care (01) ==
PROVIDERS: Emergency Provider Family Medicine; PCP Nurse Practitioner
DX: R07.89 Other chest pain (principal); K21.9 Gastro-esophageal reflux disease without esophagitis; F17.220 Nicotine dependence, chewing tobacco, uncomplicated
CPT/HCPCS: 71045; 80053; 84484; 85025; 85378; 93005; 99282

== ENCOUNTER 2022-10-13 12:34 | Emergency (ER) | payer SELFPAY ==
[2022-10-13 13:53] VITALS: BP 130/83; PULSE 91; RESP 16; TEMP 36.9; O2SAT 97
[2022-10-13 14:03] VITALS: BP 132/83; PULSE 93; RESP 16; TEMP 36.7; O2SAT 96; BMI 34.8
--- NOTE | 2022-10-13 14:32 | XR_ITS ---
WS: [id number] Exam: XR chest 1V portable [id number] Date/Time of Exam: 10/13/2022 2:41 PM Reason For Exam: cough Comparison 09/16/2021. Findings: The lungs are clear and fully expanded. Costophrenic angles are sharp. No infiltrates. Bronchovascula r relief appears normal. Cardiac silhouette is unremarkable. Bony elements are intact. XR/XR chest 1V portable [id number] IMPRESSION: Unremarkable chest radiograph.
[2022-10-13 15:07] LABS: Rapid Strep A Test Negative (Negative)
[2022-10-13 15:14] LABS: SARS Covid-2 Antigen negative (Negative)
--- NOTE | 2022-10-13 15:18 | ED_ITS ---
HPI - General Adult General: Chief complaint: General Medical Stated complaint: sore throat Time Seen by Provider: 10/13/22 14:24 History of Present Illness: Patient is a 31-year-old male comes to the ED with upper respiratory symptoms. Symptoms started approximately 3 days ago. He has nasal drainage and congestion, sore throat and a cough. He started developing a fever today. He has taken ibuprofen and Mucinex this morning. Associated symptoms: Deny chest pain, dyspnea, headache(s), nausea, rash, palpitations or vomiting Review of Systems Const: Reports: fever(s); Denies: chills or fatigue Eyes: Denies: change in vision or eye discomfort ENMT: Reports: throat pain, nasal discharge and nasal congestion; Denies: odynophagia Card: Denies: chest pain, palpitations, edema, swelling of feet/ankles, dyspnea on exertion or orthopnea Resp: Reports: non-productive cough; Denies: dyspnea or productive cough GI: Denies: abdominal pain, nausea, vomiting, diarrhea, constipation or hematochezia : Denies: flank pain, difficulty urinating, dysuria or hematuria Musc: Denies: neck pain, back pain or extremity swelling Skin/Breast: Denies: rash or new lesions Neuro: Denies: headache(s), numbness in extremities or weakness in extremities PFSH ED PFSH: Medical History COVID-19 Social History Smoking and tobacco status: current every day smoker smokeless tobacco Smokeless tobacco user: chewing tobacco Alcohol intake: never Desire information about alcohol rehabilitation?: No Counseling given: No Desire information about substance/drug rehabilitation?: No Counseling given: No Adopted: No Caregiver/support person: No Lives independently: Yes Household members: spouse Housing: House Marital status: Number of children: 4 Highest education level completed: 11th Grade service: No Current occupational status: employed History of recent travel: No Physical Exam Const: COMMON NORMALS: no acute distress, patient oriented x3, healthy appearing and alert GENERAL APPEARANCE: cooperative and comfortable HENMT: COMMON NORMALS: normocephalic HEAD & SCALP: normocephalic MOUTH: Normal oral and palatal mucosa present THROAT: posterior oropharynx normal and uvula midline Neck/C-Spine: COMMON NORMALS: supple GENERAL: Yes normal visual inspection Resp: COMMON NORMALS: normal respiratory effort, No retractions, No use of accessory muscles and clear to auscultation bilaterally AUSCULTATION: clear to auscultation bilaterally Cardio: COMMON NORMALS: regular rate, regular rhythm, S1 normal heart sound present, S2 normal heart sound present, No gallops present (Cardio), No clicks present (Cardio), No murmurs present (Cardio) and Peripheral pulses 2+ throughout RATE: regular rate RHYTHM: regular rhythm HEART SOUNDS: S1 normal heart sound present and S2 normal heart sound present PERIPHERAL PULSES: Peripheral pulses 2+ throughout GI: COMMON NORMALS: Normal to inspection, nondistended, normoactive bowel sounds present, Soft to palpation, non-tender and no masses PALPATION: Yes Soft to palpation : COMMON NORMALS: Yes no CVA tenderness BLADDER/KIDNEY EXAM: Yes no CVA tenderness Back/Pelvis: COMMON NORMALS: no CVA tenderness Extremity: COMMON NORMALS: normal to inspection Neuro: COMMON NORMALS: patient oriented x3 SENSORIUM/ORIENTATION: Yes alert GAIT: Yes Normal gait present Skin: GENERAL SKIN EXAM: dry skin Course Vital Signs: Vital signs: Vital Signs Temperature 98.1 F 10/13/22 14:03 Pulse Rate 93 10/13/22 14:03 Respiratory Rate 16 10/13/22 14:03 Blood Pressure 132/83 10/13/22 14:03 Pulse Oximetry 96 10/13/22 14:03 Oxygen Delivery Me thod 10/13/22 14:03 [facility] - General Adult Medical Decision Making Patient is a 31-year-old male comes to the ED with upper respiratory symptoms. Vitals are stable. Exam of patient is benign. Chest x-ray showed no acute findings. COVID and strep are both negative. Patient was diagnosed upper respiratory viral infection and told to follow-up with his PCP in the next week for reevaluation. He was instructed on getting gyhc-vhg-hgbdqqz meds for symptom management. Return to ED precautions given. Patient understood and agreed with plan. Lab Data I reviewed the patient's lab results. Radiology Impressions Chest X-Ray 10/13/22 14:32 IMPRESSION: Unremarkable chest radiograph. Laboratory Results SARS-CoV-2 Ag (Rapid) negative (Negative) 10/13/22 14:46 Group A Strep Rapid Negative (Negative) 10/13/22 14:46 Discharge Plan Discharge Patient Disposition: Home Clinical Impression: Upper respiratory infection, viral Condition: Stable Discharge Orders: Discharge ED (Routine); Ordered 10/13/22 Ordered By: Reji Estrada Referrals: Lanette Saldana, B[employer]ERS SUPERVISOR-C [Primary Care Provider] - Discharge Diet: Regular Discharge Activity: Increase activity as tolerated Patient Instructions: Upper Respiratory Infection (ED) Activity Restrictions/Additional Instructions: Follow-up with medical provider as directed in the next 5 to 7 days for reevaluation. Take grgg-uow-uxrbyng medications for symptom relief. Drink plenty of fluids and stay hydrated. Return to the ER or your medical provider if condition worsens. Please read and understand discharge instructions. Thank you for choosing [facility] for your healthcare needs today. Please realize this is an emergency room and that we are providing you with a medical screening exam and this may not be complete and all inclusive of all the testing and or work up that you may need to determine your ailment or severity of your illness. It is very important that you follow up as instructed or that you return to the Emergency Department should you have concerns or if your condition changes or worsens in any way. Coding Level of Care Code ED Communications Electrician Supervisor for Luann Fwgaurav Exam Comprehensive
== END 2022-10-13 16:30 | disposition home or self-care (01) ==
PROVIDERS: Emergency Medicine; Emergency Provider Physician Assistant; PCP Nurse Practitioner
DX: J06.9 Acute upper respiratory infection, unspecified (principal)
CPT/HCPCS: 71045; 87081; 87426; 87880; 99283

== ENCOUNTER → 2023-02-17 11:43 | Outpatient (BNVA) | payer SELFPAY | PROVIDERS: PCP Nurse Practitioner; Visit Provider Nurse Practitioner Family | DX: J02.9 Acute pharyngitis, unspecified (principal); R05.9 Cough, unspecified; J40 Bronchitis, not specified as acute or chronic | CPT/HCPCS: 87071; 87400; 87880 ==

== ENCOUNTER → 2023-07-13 14:29 | Outpatient (BNVA) | payer OTHER, MEDICAID, SELFPAY | PROVIDERS: PCP Nurse Practitioner; Visit Provider Nurse Practitioner Family | DX: R50.9 Fever, unspecified (principal) | CPT/HCPCS: 87426 ==

== ENCOUNTER 2025-03-02 10:00 | Emergency (ER) | payer SELFPAY ==
[2025-03-02 10:02] VITALS: BP 165/117; PULSE 73; TEMP 36.6; O2SAT 97; BMI 34.8
--- NOTE | 2025-03-02 10:07 | ECG_ITS ---
Robert Applebaum MD [employer] Test Date: 2025-03-02 Pat Name: Emigdio Ling Department: Room: Gender: Male Field Account Manager: : 1990 Requested By: Luigi Leyva Order Number: [id number] Hairston MD: Duke Ruiz M.D. Measurements Intervals [place] Rate: 75 P: 26 [place]: 169 QRS: 26 QRSD: 102 T: 21 QT: 343 QTc: 384 Interpretive Statements SINUS RHYTHM INTERPRETATION BASED ON A DEFAULT AGE OF 40 YEARS Compared to ECG 09/16/2021 11:05:17 ST (T wave) deviation no longer present Early repolarization no longer present Electronically Signed On 03-02-2025 17:34:08 CDT by Duke Ruiz M.D. [id number] [id number]
--- NOTE | 2025-03-02 10:44 | W.ED.DENTAL ---
HPI - Dental/Oral General: Chief complaint: Dental/Oral Stated complaint: CP Time Seen by Provider: 03/02/25 10:07 History of Present Illness: Patient presents to the ER with complaints of left dental pain left molar top and bottom off and on for 2 weeks. He said the pain gets worse at night and has no relief from agmo-nam-aktuqwd medicines or fci. Patient does not be able to get into a dentist. Patient does have poor dentition overall. Patient denies any fevers chills problem swallowing or breathing. Teeth map:  1. 2. Related Data Previous Rx's ?Medication ?Instructions ?Recorded clindamycin HCl 300 mg capsule 300 mg PO Q6H 7 days #28 caps 03/02/25 Allergies Allergy/AdvReac Type Severity Reaction Status Date / Time Penicillins Allergy ALGY-Hives Verified 03/02/25 10:12 Review of Systems General: Reports: 10 or more systems reviewed and unremarkable except in HPI and below PFSH ED PFSH: Medical History COVID-19 Surgical History Hx of skin graft Social History Smoking and tobacco/nicotine status: current every day tobacco/nicotine user (chew tobacco) smokeless tobacco Smokeless tobacco user: chewing tobacco Alcohol intake: never Substance/Drug Use: never Adopted: No Caregiver/support person: No Lives independently: Yes Household members: spouse Housing: House Marital status: Number of children: 4 Highest education level completed: 11th Grade service: No Current occupational status: employed Physical Exam Const: COMMON NORMALS: no acute distress, average body habitus, patient oriented x3, no limitations, healthy appearing, alert and well nourished HENMT: COMMON NORMALS: normocephalic, atraumatic, hearing grossly normal bilaterally, external ears normal, Normal external nose present, Normal nasal mucous membranes and turbinates present, moist oral mucous membranes and oropharynx normal; dentition not normal (Very poor dentition throughout with necrotic teeth on the left upper and lo) HEAD & SCALP: normocephalic and atraumatic NOSE: Normal external nose present and Normal nasal mucous membranes and turbinates present EXTERNAL EAR: Yes external ears normal Eye: COMMON NORMALS: EOMs intact bilaterally, conjunctivae normal and no scleral icterus CONJUNCTIVA: Yes conjunctivae normal Neck/C-Spine: COMMON NORMALS: full ROM, no lymphadenopathy, supple, no meningeal signs, no JVD and Thyroid normal THYROID: Thyroid normal Cardio: COMMON NORMALS: no JVD Neuro: COMMON NORMALS: patient oriented x3 SENSORIUM/ORIENTATION: Yes alert MENINGEAL SIGNS: Yes no meningeal signs Course Vital Signs: Vital signs: Vital Signs Temperature 97.8 F 03/02/25 10:02 Pulse Rate 73 03/02/25 10:02 Blood Pressure 165/117 03/02/25 10:02 Pulse Oximetry 97 03/02/25 10:02 Oxygen Delivery Me thod Room Air 03/02/25 10:02 [facility] - Dental/Oral Medical Decision Making Patient prescribed clindamycin and was instructed to follow-up with his dentist for definitive treatment. Medical Records I reviewed the patient's medical records. Lab Data I reviewed the patient's lab results. No radiology studies performed this visit Discharge Plan Discharge Patient Disposition: Home Clinical Impression: Toothache Condition: Stable Prescriptions: New clindamycin HCl 300 mg capsule 300 mg PO Q6H 7 Days Qty: 28 0RF Discharge Orders: Discharge ED (Routine); Ordered 03/02/25 Ordered By: Luigi Leyva Referrals: Lanette Saldana, EP[employer] WILLOW ANALYST-C [Primary Care Provider] - 1 week Patient Instructions: Toothache (ED) Activity Restrictions/Additional Instructions: Please take all your antibiotics as directed. Please follow-up with your dentist for definitive treatment. Thank you for choosing [facility] for your healthcare needs today. Please realize that you were seen in the emergency department and that we are providing you with an emergency medical screening exam and this may not be a complete and all exclusive of all testing and/or medical workup we may need to determine your element or severity of your illness. It is very important that you follow-up as instructed with your primary care provider or specialist for the additional evaluation and to discuss your medical treatment plan. You may return to the emergency department should you have concerns or if your condition changes or worsens in any way. Print Language: Malay Coding Level of Care Code ED Skein Winding Operator for Luann Sparks
[2025-03-02 11:06] VITALS: BP 158/105; PULSE 87; O2SAT 95
== END 2025-03-02 10:56 | disposition home or self-care (01) ==
PROVIDERS: Emergency Provider Emergency Medicine; PCP Nurse Practitioner
DX: K08.89 Other specified disorders of teeth and supporting structures (principal); F17.220 Nicotine dependence, chewing tobacco, uncomplicated
CPT/HCPCS: 93005; 99283